=== PATIENT | female | born 2000 | race Caucasian/White ===

== ENCOUNTER 2022-05-30 09:48 | Emergency (ER) | payer OTHER, MEDICAID, SELFPAY ==
[2022-05-30 09:50] VITALS: BP 110/61; PULSE 58; RESP 20; TEMP 36.4; O2SAT 99
[2022-05-30] MEDS: Normal Saline 1,000 ML 1000 ML IV ×2 (10:20→11:46)
[2022-05-30] MEDS: Ondansetron 4 MG/2 ML VIAL IVP (10:20)
[2022-05-30 10:21] LABS: Abs Immature Grans 0.04 10^3/uL (0.0-0.06); Absolute Basophil Count 0.03 10^3/uL (0.0-0.2); Absolute Eosinophil Count 0.03 10^3/uL (0.0-0.7); Absolute Lymphocyte Count 0.87 10^3/uL (1.2-3.4); Absolute Neutrophil Count 11.49 10^3/uL (1.2-6.7); Basophils % 0.2; Eosinophils % 0.2; HCT 38.8 % (36.0-46.0); HGB 13.6 g/dL (11.2-15.7); Immature Grans % 0.3; Lymphocytes % 6.8; MCH 31.9 pg (27.0-33.0); MCHC 35.1 % (32.0-36.0); MCV 91 fL (80-95); MPV 9.6 fL (8.0-11.0); Neutrophils % 89.5; Platelet Count 293 10^3/uL (130-400); RBC 4.27 10^6/uL (3.93-5.22); RDW 12.6 % (11.7-14.6); RDW-SD 41.7 fL; WBC 12.84 10^3/uL (4.4-10.8)
[2022-05-30 10:22] LABS: Absolute Monocyte Count 0.39 10^3/uL (0.1-0.8)
--- NOTE | 2022-05-30 10:35 | ED.GENADUL_ITS ---
Discharge Plan Disposition Patient Disposition: HOME Condition: Stable Discharge Details Clinical Impression: Gastroenteritis Primary Care Provider: Unknown,Unknown ED Provider: Keith Damon Home Meds and New Rx's Prescriptions: New prochlorperazine maleate [Compazine] 5 mg tablet 5 mg PO QID PRN (Reason: nausea and vomiting) Qty: 20 0RF Discharge Instructions Instructions: Gastroenteritis (ED) Additional Instructions: Please stay well-hydrated and slowly advance here diet as tolerated. If you develop any new or significant worsening of symptoms please have reevaluation performed in emergency department or follow-up with your primary care provider if not improving in the next week. Referrals: Primary Care Provider [Outside] - 1 week (If not improving) Discharge Data Discharge Date/Time-TO BE ENTERED AT DEPARTURE: 05/30/22 14:38 Medical Decision Making kar of the abdomen but attributes this more due to the active vomiting she has had. Patient is currently on her period but denies other vaginal symptoms urinary symptoms or bowel symptoms. Physical exam is unremarkable with patient having active bowel sounds, no abdominal tenderness, no CVA tenderness, and otherwise unremarkable exam. Patient is slightly pale in appearance but otherwise stable. We will check patient's labs and give IV fluids and antiemetics pending results. After establishment of status will consider ultrasound imaging given history with similar presentation in the past. Reviewed patient's labs and she does have a elevated white count with elevated neutrophils and lymphocytes I feel this is more likely secondary to vomiting but will continue to monitor, potassium is 3.4 magnesium 1.7, glucose is slightly elevated at 150 otherwise CMP is unremarkable. Lipase is within normal range. Patient is not and urinalysis shows high specific gravity, urine ketones, and blood present. I feel that the blood being present is secondary to her being on her menstrual cycle. Will order ultrasound imaging due to patient's history of similar presentation with ovarian cyst. Pending ultrasound imaging results patient did state return of nausea and unable to take p.o. potassium and magnesium that was ordered. Will give patient additional fluids and Compazine to see if that works better than the initial Zofran. Review of coronary ultrasound results show a left-sided ovarian cyst otherwise unremarkable study. Reassessed patient and she stated significant improvement of symptoms and stated that the Compazine worked a lot better than Zofran. We will plan on allowing patient to finish IV fluids for a total of 2 L. While pending patient finishing up fluids she did have acute worsening of pain. Will order Toradol and with reassessment of abdomen patient now does have significant reproducible tenderness with palpation of the right lower quadrant. I feel this is odd given patient's oophorectomy and cannot fully attribute this to patient's cyst. Will perform CT imaging of the abdomen and continue to monitor Review of the imaging and speaking with radiologist patient has findings suggestive of enteritis but no acute surgical findings noted. Reassessed patient and she states that she is improving after ketorolac. Will discharge patient with antiemetics and close monitoring along with return and follow-up precautions discussed. After discussion of diagnosis and plan of care patient has no further needs, questions, or concerns and states clear understanding to return to the emergency department for any worsening symptoms. This documentation was generated using [employer] system, please disregard any oddities of phrase or misspellings. Imaging Data Radiologic Study: Attestation: I personally reviewed and interpreted this imaging study as follows: Imaging: CT Scan Radiologist's impression: FINDINGS: ABDOMEN: Lung Bases: Normal where visualized. Liver: Normal density. No measurable mass. Portal, Superior Mesenteric, and Splenic Veins: Unremarkable. Gallbladder and Biliary Tract: No radiodense calculus or dilation. Small amount of pericholecystic fluid. Pancreas: Normal density, no abnormal calcifications or inflammatory process. Spleen: Normal. Adrenals: No masses seen. Kidneys: Normal size, contour and axis. No radiodense stones or obstructive uropathy. No masses seen. Abdominal Aorta: Abdominal portion non-dilated. Bowel: No evidence of bowel obstruction. There is a tubular structure seen in the right lower quadrant which is not distended and appears represent a normal appendix. (Series 5, images [id number]). The terminal ileum appears distended with fluid and mildly thick walled suspicious for an infectious/inflammatory process. Peritoneal Cavity: There is a small amount of pelvic ascites. No free air. Lymph Nodes: Within normal limits. Bones: Within normal limits for the patient's age. Soft Tissues: Unremarkable. PELVIS: Bladder: Symmetric distention, no gross wall thickening. Reproductive Organs: Unremarkable as visualized. Lymph Nodes: Within normal limits. Bones: Within normal limits for the patient's age. IMPRESSION: 1. Findings suspicious for inflammation/infection of the terminal ileum. 2. A normal appendix is identified. 3. Small amount of free pelvic fluid. No evidence of pneumoperitoneum. 4. Findings were discussed with Gordon Damon at 2:06 p.m. on 05/30/2022. Radiologic Study #2: Attestation: I personally reviewed and interpreted this imaging study as follows: Imaging: Ultrasound Radiologist's impression: UTERUS: Position: Anteverted. Size: 7.7 long by 3.5 AP by 5.3 transverse cm Endometrium: 0.4 cm. Normal for patient's menstrual status. Myometrium: Unremarkable. Cervix: Unremarkable. OVARIES: The patient is status post right oophorectomy. Left: 4.0 x 1.5 x 2.7 cm Cyst or mass: No suspicious cystic or solid masses. There is a 1.4 x 1.5 x 1.1 cm paraovarian cyst. Lab Data Lab results reviewed: Yes I reviewed the patient's lab results. HPI General Mode of arrival: ambulatory . Date/Time Provider Initiated Documentation: 05/30/22 09:52 . Limitations to Documentation: no limitations . Information obtained by: patient and RN notes reviewed . History of Present Illness 22 year old F presents to the emergency department with the chief complaint of Nausea and vomitting , described as mild and similar to prior episodes, with intensity rated at 2. Quality is described as aching, and is localized to the abdomen. Patient reports no radiation. Patient started e xperiencing this hour(s) (3) and it has been constant. No relieving factors improve symptom(s), No exacerbating factors reported . Patient notes no other symptoms.. Patient did receive the following treatments prior to arrival, none Related Data Home Medications Medication Instructions Recorded Confirmed prochlorperazine maleate 5 mg 5 mg PO QID PRN nausea and 05/30/22 tablet (Compazine) vomiting #20 tabs Previous Rx's Medication Instructions Recorded prochlorperazine maleate 5 mg 5 mg PO QID PRN nausea and 05/30/22 tablet (Compazine) vomiting #20 tabs Allergies Allergy/AdvReac Type Severity Reaction Status Date / Time No Known Allergies Allergy Unverified 05/30/22 09:57 General Stated Complaint: Nausea/Vomit/Diar NINA: 3 Review of Systems Constitutional Constitutional: Reports chills, Denies fever(s), Denies headache(s) and Reports poor appetite ENT Ears, Nose, Mouth, and Throat: Denies headache(s) Cardiovascular Cardiovascular: Denies chest pain and Denies dyspnea Respiratory Respiratory: Denies cough and Denies dyspnea Gastrointestinal Gastrointestinal: Reports as per HPI, Reports abdominal pain, Denies melena, Denies change in bowel habits, Denies constipation, Denies diarrhea, Reports nausea and Reports vomiting Genitourinary Genitourinary: Denies dysuria, Denies pelvic pain, Denies vaginal discharge and Denies vaginal odor Integumentary/Breasts Skin/Breast: Denies rash Neurologic Neurologic: Denies headache(s) PFSH All Active Problems (Updated 05/30/22 @ 14:16 by Keith Damon NP) Gastroenteritis (Acute) Medical History (Updated 05/30/22 @ 14:16 by Keith Damon NP) Dermoid cyst of ovary Surgical History (Updated 05/30/22 @ 10:37 by Keith Damon NP) History of right oophorectomy Social History Smoking/Tobacco Use Status: Current every day Smoking risk assessment performed?: Yes Alcohol Intake: never Substance use type: marijuana Female Reproductive History Menstrual Date of last menstrual period: 05/30/22 Exam Const General: cooperative Orientation: alert, awake and oriented x3 Resp Effort & Inspection: normal respiratory effort and able to speak in complete sentences Auscultation: clear to auscultation bilaterally Cardio Rate: regular rate Rhythm: regular rhythm Heart Sounds: S1 normal and S2 normal GI Inspection: normal to inspection Palpation: soft, no hepatosplenomegaly, not firm, no guarding, no masses, no pulsatile masses, not rigid, no splenomegaly and nontender Auscultation: normal bowel sounds Back/Spine/Pelvis Back: no CVA tenderness Neuro General: patient alert, patient awake, patient oriented x3, gait normal and moves all extremities Course Vital Signs Vital signs: Vital Signs Temperature 36.4 C L 05/30/22 09:50 Pulse 58 L 05/30/22 09:50 Respiratory Rate 20 05/30/22 09:50 Blood Pressure 110/61 05/30/22 09:50 Pulse Oximetry 99 05/30/22 09:50 Temperature 36.4 C L 05/30/22 09:50 Temperature Source Temporal Artery Scan 05/30/22 09:50 Pulse 58 L 05/30/22 09:50 Respiratory Rate 20 05/30/22 09:50 Blood Pressure 110/61 05/30/22 09:50 Blood Pressure Position Sitting 05/30/22 09:50 Pulse Oximetry 99 05/30/22 09:50 Oxygen Delivery Method Room Air 05/30/22 09:50 Oxygen Flow Rate 0 05/30/22 09:50 Pain Level 0 05/30/22 09:50 Lab/Test Results Lab/Test Results: Laboratory Tests Range/Units 05/30/22 10:10 WBC (4.4-10.8) 10^3/uL 12.84 H RBC (3.93-5.22) 10^6/uL 4.27 Hgb (11.2-15.7) g/dL 13.6 Hct (36.0-46.0) % 38.8 MCV (80-95) fL 91 MCH (27.0-33.0) pg 31.9 MCHC (32.0-36.0) % 35.1 RDW (11.7-14.6) % 12.6 Plt Count (130-400) 10^3/uL 293 MPV (8.0-11.0) fL 9.6 Immature Gran % 0.3 Neutrophils % 89.5 Lymphocytes % 6.8 Monocytes % 3.0 Eosinophils % 0.2 Basophils % 0.2 Nucleated RBC % (0.0-0.3) % 0.0 Absolute Neutrophils (1.2-6.7) 10^3/uL 11.49 H Absolute Lymphocytes (1.2-3.4) 10^3/uL 0.87 L Absolute Monocytes (0.1-0.8) 10^3/uL 0.39 Absolute Eosinophils (0.0-0.7) 10^3/uL 0.03 Absolute Basophils (0.0-0.2) 10^3/uL 0.03
[2022-05-30 11:14] LABS: ALT 23 U/L (14-59); AST 22 U/L (15-37); Alkaline Phosphatase 52 U/L (46-116); Anion Gap 9.4 mmol/L (3-11); BUN 16 mg/dL (7-18); Bilirubin, Total 0.5 mg/dL (0.2-1.0); CO2 24.6 mmol/L (21.0-32.0); CREATININE 0.7 mg/dL (0.55-1.02); Calcium 8.6 mg/dL (8.5-10.1); Chloride 104 mmol/L (98-107); Estimated GFR 127.69 (mL/min/1.73m2); Glucose 150 mg/dL (74-106); Lipase 67 U/L (73-393); Magnesium 1.7 mg/dL (1.8-2.4); Potassium 3.4 mmol/L (3.5-5.1); Sodium 138 mmol/L (136-145)
--- NOTE | 2022-05-30 11:15 | DI.US_ITS ---
Exam(s) US PELVIS EXAM: US PELVIS CLINICAL HISTORY: pain nausea vomitting, hx of cyst. TECHNIQUE: Transabdominal and transvaginal pelvic ultrasound was performed using standard protocol. COMPARISON: No exams were available for comparison FINDINGS: UTERUS: Position: Anteverted. Size: 7.7 long by 3.5 AP by 5.3 transverse cm Endometrium: 0.4 cm. Normal for patient's menstrual status. Myometrium: Unremarkable. Cervix: Unremarkable. OVARIES: The patient is status post right oophorectomy. Left: 4.0 x 1.5 x 2.7 cm Cyst or mass: No suspicious cystic or solid masses. There is a 1.4 x 1.5 x 1.1 cm paraovarian cyst. DOPPLER: Color: Blood flow is identified to the left ovary.. CUL-DE-SAC: Free fluid: None. Other: None. IMPRESSION: 1. Normal-appearing uterus with endometrial stripe within normal limits. 2. Status post right oophorectomy. Unremarkable left ovary. 3. Findings were discussed with Gordon Damon at 1 p.m. on 05/30/2022. DATA REPOSITORY:
[2022-05-30 11:32] LABS: Bilirubin Negative (Negative); Blood Moderate (Negative); Clarity Clear (Clear); Glucose Negative (Negative); Ketones >=160 mg/dL (Negative); Leukocyte Esterase Negative (Negative); Nitrite Negative (Negative); Specific Gravity >= 1.030 (1.005-1.025)
[2022-05-30] MEDS: Magnesium Oxide 400 MG TAB PO (11:36)
[2022-05-30] MEDS: Potassium Chloride 10 MEQ TABCR PO (11:37)
[2022-05-30 11:40] LABS: Bacteria Negative HPF (Negative); C & S Indicated? No; Casts Negative LPF (Negative); Crystals Negative HPF (Negative); Epithelial Cells Rare HPF (Negative); Mucus Trace (Negative); WBC 0-2 HPF (0-5)
[2022-05-30] MEDS: Prochlorperazine 10 MG/2 ML VIAL IVP (11:47)
--- NOTE | 2022-05-30 12:24 | NUR.NOTE ---
Nursing Note: Pt had some relief from nausea post administration of compazine, she was able to take mag and potassium PO and given water and crackers, continuing to monitor, FPJ
[2022-05-30 12:52] VITALS: BP 109/51; PULSE 65; RESP 14; O2SAT 99
[2022-05-30] MEDS: Ketorolac 30 MG/ML VIAL IVP (12:55)
[2022-05-30] MEDS: Omnipaque 350 MG/ML 500 ML BTL-Imaging package 75 ML IJ (13:33)
--- NOTE | 2022-05-30 13:34 | DI.CT_ITS ---
Exam(s) CT ABDOMEN PELVIS W EXAM: CT ABDOMEN PELVIS W CLINICAL HISTORY: RLQ pain TECHNIQUE: Imaging Protocol: Axial computed tomography images with coronal and sagittal reformatted images were created and reviewed CONTRAST MATERIAL: Intravenous: Omnipaque 350 Contrast volume:75 mL Oral: No COMPARISON: No exams were available for comparison FINDINGS: ABDOMEN: Lung Bases: Normal where visualized. Liver: Normal density. No measurable mass. Portal, Superior Mesenteric, and Splenic Veins: Unremarkable. Gallbladder and Biliary Tract: No radiodense calculus or dilation. Small amount of pericholecystic fl uid. Pancreas: Normal density, no abnormal calcifications or inflammatory process. Spleen: Normal. Adrenals: No masses seen. Kidneys: Normal size, contour and axis. No radiodense stones or obstructive uropathy. No masses seen. Abdominal Aorta: Abdominal portion non-dilated. Bowel: No evidence of bowel obstruction. There is a tubular structure seen in the right lower quadra nt which is not distended and appears represent a normal appendix. (Series 5, images [id number]). The terminal ileum appears distended with fluid and mildly thick walled suspicious for an infectious/infl ammatory process. Peritoneal Cavity: There is a small amount of pelvic ascites. No free air. Lymph Nodes: Within normal limits. Bones: Within normal limits for the patient's age. Soft Tissues: Unremarkable. PELVIS: Bladder: Symmetric distention, no gross wall thickening. Reproductive Organs: Unremarkable as visualized. Lymph Nodes: Within normal limits. Bones: Within normal limits for the patient's age. IMPRESSION: 1. Findings suspicious for inflammation/infection of the terminal ileum. 2. A normal appendix is identified. 3. Small amount of free pelvic fluid. No evidence of pneumoperitoneum. 4. Findings were discussed with Gordon Damon at 2:06 p.m. on 05/30/2022. RADIATION DOSE DELIVERED: 459.16mGy.cm Total DLP DATA REPOSITORY: All CT scans at this facility are submitted to the National Radiology Data Registry (NRDR) Dose Index Registry (DIR) with the [employer] ([employer]). RADIATION OPTIMIZATION: All CT scans at this facility use at least one of these dose optimization te chniques: automated exposure control; mA and/or kV adjustment per patient size (includes targeted exa ms where dose is matched to clinical indication); or iterative reconstruction.
[2022-05-30] MEDS: Ondansetron O.D.T. 4 MG TABEF, 3 TABS/BTL PO (14:25)
[2022-05-30 14:33] VITALS: BP 108/55; PULSE 68; RESP 14; O2SAT 99
== END 2022-05-30 14:38 | disposition home or self-care (01) ==
PROVIDERS: Emergency Provider Nurse Practitioner Family
DX: K52.9 Noninfective gastroenteritis and colitis, unspecified (principal); N83.202 Unspecified ovarian cyst, left side; F17.200 Nicotine dependence, unspecified, uncomplicated
CPT/HCPCS: 36415; 80053; 83690; 96361; 96374; 96375; 99285; 74177; 76856; 81003; 81015; 83735; 85025; 99284; J0780; J1885; J2405